=== PATIENT | male | born 1990 | race Caucasian/White ===

== ENCOUNTER 2018-02-04 14:07 | Emergency (ER) | payer MEDICAID ==
[2018-02-04] MEDS ORDERED: Diphtheria,Pertussis(Acell),Tetanus Vaccine 0.5 ML SDV IM ONE (14:35)
--- NOTE | 2018-02-06 10:44 | ER ---
DATE SEEN: 02/04/2018 TIME SEEN: The patient was seen at 1423 hours. HISTORY OF PRESENT ILLNESS: The patient works at the [employer]. Two days ago, he cut his right lateral mid phalanges, dominant hand accidentally with his knife. He has no loss of sensation. He has free range of motion of the finger. He was unable to get to the hospital for laceration repair. Consequently, now it is 2 days. PHYSICAL EXAMINATION: HEENT: Negative. LUNGS: Negative. CARDIORESPIRATORY: Negative. ABDOMEN: Negative. EXTREMITIES: Right lateral (ulnar) surface and mid phalanges 1 cm laceration. Wound is clean. No erythema. No linear angiitis. No swelling. There is mild tenderness. ASSESSMENT: The patient is beyond the therapeutic window for suture placement. I would not use Steri-Strips or Dermabond. PLAN: Let it heal by secondary intention. If there is mild infection, he should wash and clean it as needed. Wash and clean with soap, has already been cleansed by the nurse. Follow up with doctor as needed. ASSESSMENT: Laceration beyond the therapeutic window for suture repair. Reassure. No evidence for tendon involvement or neurological or sensory changes. /[id number] JOSE/MODL
== END 2018-02-04 14:57 | disposition home or self-care (01) ==
LOC: FB.ED 14:07
DX: S61.219A Laceration without foreign body of unspecified finger without damage to nail, initial encounter (principal); W26.0XXA Contact with knife, initial encounter
CPT/HCPCS: 90471; 90472; 90715; 99281; 99283

== ENCOUNTER 2018-05-24 14:37 | Emergency (ER) | payer SELFPAY ==
[2018-05-24] MEDS ORDERED: Acetaminophen/HYDROcodone 325-5 MG Tab PO ONE (14:50)
--- NOTE | 2018-05-24 15:05 | EDM.PDOC ---
ED HPI GENERAL MEDICAL PROBLEM - General Chief Complaint: Upper Extremity Injury/Pain Stated Complaint: RT HAND Time Seen by Provider: 05/24/18 14:37 Source of Information: Reports: Patient, Family History Limitations: Reports: No Limitations - History of Present Illness INITIAL COMMENTS - FREE TEXT/NARRATIVE: 27 years old -muscular-w m, came to the ed due to pain at his right lat hand after he slammed his right hand between a sofa and a door while moving a sofa at his home. Pt had a recent fracture at his right 5th metacarpal bone, which was healing and he was cleared to go back to work today. He was sent home from work today because he need to use 2 hand at work and light duty is not on option at his work. Pt is able to move his fingers with some discomfort. 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 Pt dose not have any other medical issues at this time, no N/V/D and dizziness either. BP 131/81 pulse 89 Pulse ox 99% on RA, Temp 36.8 RR 19 Onset Date: 05/24/18 Onset Time: 10:00 Duration: Hour(s): Location: Reports: Upper Extremity, Right Quality: Reports: Ache, Burning, Dull Severity: Moderate Improves with: Reports: Rest Worsens with: Reports: Movement Context: Reports: Trauma Associated Symptoms: Reports: No Other Symptoms Treatments EARLY HEAD START DIRECTOR: Reports: Aspirin Right Hand Pain Score (Numeric/FACES): 9 - Related Data Allergies Allergy/AdvReac Type Severity Reaction Status Date / Time No Known Allergies Allergy Verified 05/24/18 14:47 Home Meds: Home Meds Acetaminophen/HYDROcodone [Warren 325-5 MG] 1 - 2 tab PO Q6H PRN #16 tab [Rx] Past Medical History - Past Health History Medical/Surgical History: Denies Medical/Surgical History Musculoskeletal History: Reports: Fracture Psychiatric History: Reports: ADHD, Bipolar, Schizophrenia Social & Family History - Family History Family Medical History: Noncontributory - Caffeine Use Caffeine Use: Reports: Coffee Review of Systems - Review of Systems Review Of Systems: See Below Constitutional: Reports: No Symptoms Eyes: Reports: No Symptoms Ears: Reports: No Symptoms Nose: Reports: No Symptoms Mouth/Throat: Reports: No Symptoms Respiratory: Reports: No Symptoms Cardiovascular: Reports: No Symptoms GI/Abdominal: Reports: No Symptoms Genitourinary: Reports: No Symptoms Musculoskeletal: Reports: Hand Pain Skin: Reports: No Symptoms Neurological: Reports: No Symptoms Psychiatric: Reports: No Symptoms ED EXAM, GENERAL - Physical Exam Exam: See Below Exam Limited By: No Limitations General Appearance: Alert, WD/WN, Mild Distress Eye Exam: Bilateral Eye: Normal Inspection Ears: Normal External Exam Ear Exam: Bilateral Ear: Auricle Normal Nose: Normal Inspection, Normal Mucosa, No Blood Throat/Mouth: Normal Inspection, Normal Lips, Normal Gums, Normal Voice, No Airway Compromise Head: Atraumatic, Normocephalic Neck: Normal Inspection, Supple, Non-Tender Respiratory/Chest: No Respiratory Distress, Lungs Clear, Normal Breath Sounds, No Accessory Muscle Use, Chest Non-Tender Cardiovascular: Normal Peripheral Pulses, Regular Rate, Rhythm, No Edema Peripheral Pulses: 2+: Brachial (L) GI/Abdominal: Normal Bowel Sounds, Soft, Non-Tender, No Organomegaly, No Distention, No Abnormal Bruit, No Mass, Pelvis Stable (Male) Exam: Deferred Rectal (Males) Exam: Deferred Back Exam: Normal Inspection, Full Range of Motion Extremities: Normal Inspection, Normal Range of Motion, Other (right hand pain/ swelling, no open wound rogh lat hand.) Neurological: Alert, Oriented, CN II-XII Intact, Normal Cognition, Normal Gait, Normal Reflexes, No Motor/Sensory Deficits Psychiatric: Normal Affect, Normal Mood Skin Exam: Warm, Dry, Intact, Normal Color, No Rash Lymphatic: No Adenopathy Course - Vital Signs Text/Narrative:: 27 years old -muscular-w m, came to the ed due to pain at his right lat hand after he slammed his right hand between a sofa and a door while moving a sofa at his home. Pt had a recent fracture at his right 5th metacarpal bone, which was healing and he was cleared to go back to work today. He was sent home from work today because he need to use 2 hand at work and light duty is not on option at his work. Pt is able to move his fingers with some discomfort. 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 Pt dose not have any other medical issues at this time, no N/V/D and dizziness either. BP 131/81 pulse 89 Pulse ox 99% on RA, Temp 36.8 RR 19 PE: WNWD WM with right hand pain Imaging: Spiral Fx 5th MC bone right hand, non displaced on top of an old simple Fx same location Impression: Spiral Fx 5th MC bone right hand, non displaced on top of an old simple Fx same location Tx: Ice, elevation. Warren, valco splint (pt had his own splint) Reexam: Improved 3.[address] Potts, Ortho: Rest, Ice and elevation, can see pt this Tuesday Plan: D/C with instructions Last Recorded V/S: Last Vital Signs Temp 36.4 C 05/24/18 14:48 Pulse 89 05/24/18 14:48 Resp 16 05/24/18 14:48 BP 131/81 05/24/18 14:48 Pulse Ox 99 05/24/18 14:48 - Orders/Labs/Meds Orders: Active Orders 24 hr Category Date Time Status Cooling Warming Measures [RC] ASDIRECTED Care 05/24/18 14:51 Active Hand Comp Min 3V Rt [CR] Stat Exams 05/24/18 14:50 Taken Ice Bag [Ice Therapy] [OM.PC] Routine Oth 05/24/18 14:51 Ordered Meds: Medications Discontinued Medications Generic Name Dose Route Start Last Admin Trade Name Freq PRN Reason Stop Dose Admin Hydrocodone Bitart/Acetaminophen 1 tab 05/24/18 14:50 Warren 325-5 Mg PO 05/24/18 14:51 ONETIME ONE Departure - Departure Time of Disposition: 15:35 Disposition: Home, Self-Care 01 Condition: Good Clinical Impression: Metacarpal bone fracture Qualifiers: Encounter type: initial encounter Metacarpal bone: fifth Fracture type: closed Metacarpal location: shaft Fracture alignment: nondisplaced Laterality: right Qualified Code(s): S62.356A - Nondisplaced fracture of shaft of fifth metacarpal bone, right hand, initial encounter for closed fracture - Discharge Information *PRESCRIPTION DRUG MONITORING PROGRAM REVIEWED*: Yes *COPY OF PRESCRIPTION DRUG MONITORING REPORT IN PATIENT JESUS: Yes Prescriptions: Acetaminophen/HYDROcodone [Warren 325-5 MG] 1 - 2 tab PO Q6H PRN #16 tab PRN Reason: for severe pain only. Referrals: Gabe Potts DO [Primary Care Provider] - Forms: ED Department Discharge, ED Return to Work/School Form Additional Instructions: Rest, Ice elevation, Motrin, Warren for severe pain., Please follow up with Dr. Potts this Tuesday, please come back if your symptoms get worse acutely. - My Orders Last 24 Hours: My Active Orders 05/24/18 14:50 Hand Comp Min 3V Rt [CR] Stat 05/24/18 14:51 Cooling Warming Measures [RC] ASDIRECTED Ice Bag [Ice Therapy] [OM.PC] Routine - Assessment/Plan Last 24 Hours: My Active Orders 05/24/18 14:50 Hand Comp Min 3V Rt [CR] Stat 05/24/18 14:51 Cooling Warming Measures [RC] ASDIRECTED Ice Bag [Ice Therapy] [OM.PC] Routine
--- NOTE | 2018-05-25 11:04 | CR ---
INDICATION: Smashed hand between door frame and couch, moving couch. RIGHT HAND: Three views of the right hand were obtained 05/24/2018 and compared with 04/07/2018, revealing a refracture through the mid shaft of the 5th metacarpal, now a spiral fracture, as opposed to a simple fracture on the previous examination. It remains in good position and alignment, however, with no other bone or joint abnormality identified. Report was called to Dr. Phelps at 1532 hours on 05/24/2018. JEIMY
== END 2018-05-24 15:55 | disposition home or self-care (01) ==
LOC: FB.ED 14:37
DX: S62.356A Nondisplaced fracture of shaft of fifth metacarpal bone, right hand, initial encounter for closed fracture (principal); W23.0XXA Caught, crushed, jammed, or pinched between moving objects, initial encounter
CPT/HCPCS: 73130-RT; 99283

== ENCOUNTER 2019-05-06 10:47 | Emergency (ER) | payer BC ==
--- NOTE | 2019-05-06 11:30 | EDM.PDOC ---
ED HPI GENERAL MEDICAL PROBLEM - General Chief Complaint: Neuro Symptoms/Deficits Stated Complaint: LIGHT HEADED AND DIZZY Time Seen by Provider: 05/06/19 11:15 Source of Information: Reports: Patient History Limitations: Reports: No Limitations - History of Present Illness INITIAL COMMENTS - FREE TEXT/NARRATIVE: 28-year-old male who reports for the past 1-1/2 months he has had feelings of dizziness, shortness of breath, hot and cold flashes and episodes of near syncope. He has had coughing episodes as well. 2-1/2 weeks ago, he was seen at the [facility] and reports he had an EKG, blood tests and a chest x-ray performed and was told that everything looked okay but he had a bronchitis and they treated with a Z-G[place]. He states that he improved marginally with decreased cough but he still has the dizziness and hot and cold flashes. They also told him at the time that he had elevated blood pressure. He has had no nausea or vomiting. He has been eating and drinking normally. He has had no syncopal episodes. He does feel short of breath. He denies any chest pain or abdominal pain. He does have back pain but this is chronic and he rates the pain as a 6/ 10. This is a sore and aching pain that is worse with activity and better with rest. No localized area of weakness. There are no other associated signs or symptoms. There are no other modifying factors. Onset: Other (1-1/2 months ago) Duration: Constant (Constant and not improving according to the patient) Location: Reports: Back (He does have chronic back pain but this is not his issue today.), Other (Generalized malaise) Quality: Reports: Ache (In his back) Severity: Moderate Improves with: Reports: Rest Worsens with: Reports: Movement (Activity) Context: Reports: Other (As above) Associated Symptoms: Reports: Malaise, Shortness of Breath, Weakness, Other ( Dizziness and near syncope. Hot and cold flashes.) Treatments GLASS CYLINDER FLANGER: Reports: Other (see below) (Nothing) - Related Data Allergies Allergy/AdvReac Type Severity Reaction Status Date / Time No Known Allergies Allergy Verified 05/06/19 10:59 Home Meds: Home Meds NK [No Known Home Meds] 05/06/19 [History] Past Medical History Respiratory History: Reports: Bronchitis, Recurrent Musculoskeletal History: Reports: Back Pain, Chronic, Fracture, Neck Pain, Chronic Other Musculoskeletal History: hx fx L ankle, R hand fx Neurological History: Reports: Migraines, Vertigo Psychiatric History: Reports: ADD, ADHD, Anxiety, Bipolar, Panic Attack, Psych Hospitalization(s), Schizophrenia, Suicide Attempt - Infectious Disease History Infectious Disease History: Reports: Chicken Pox - Past Surgical History Other Surgical History Comment: No previous surgeries. Social & Family History - Tobacco Use Smoking Status *Q: Current Every Day Smoker Years of Tobacco use: 20 Packs/Tins Daily: 2 - Caffeine Use Caffeine Use: Reports: Coffee, Energy Drinks, Soda Other Caffeine Use: reports drinking 1 pot of coffee per day. - Alcohol Use Alcohol Use History: Yes Alcohol Use Frequency: Monthly - Recreational Drug Use Recreational Drug Use: Yes Recreational Drug Type: Reports: Marijuana/Hashish Recreational Drug Use Frequency: Daily - Living Situation & Occupation Occupation: Employed (He works at the [employer] in housekeeping) Social History Comment: He is here with his significant other. ED ROS GENERAL - Review of Systems Review Of Systems: See Below Constitutional: Reports: Malaise, Other (Hot and cold flashes) HEENT: Reports: Vertigo (Dizziness but this is also chronic) Respiratory: Reports: Shortness of Breath (Feels short of breath) Cardiovascular: Reports: Lightheadedness GI/Abdominal: Reports: No Symptoms : Reports: No Symptoms Musculoskeletal: Reports: Neck Pain (Chronic), Back Pain (Chronic) Skin: Reports: No Symptoms Neurological: Reports: Dizziness, Other (Near syncope at times) Psychiatric: Reports: Anxiety Hematologic/Lymphatic: Reports: No Symptoms ED EXAM, GENERAL - Physical Exam Exam: See Below Free Text/Narrative:: There were no orthostatic changes in the patient's blood pressure or pulse. Exam Limited By: No Limitations General Appearance: Alert, WD/WN, No Apparent Distress Eye Exam: Bilateral Eye: EOMI, Normal Inspection, PERRL Ears: Normal External Exam, Hearing Grossly Normal Ear Exam: Bilateral Ear: Auricle Normal Nose: Normal Inspection, Normal Mucosa, No Blood Throat/Mouth: Normal Oropharynx, Normal Voice, No Airway Compromise Head: Atraumatic, Normocephalic Neck: Normal Inspection, Supple, Non-Tender, Full Range of Motion Respiratory/Chest: No Respiratory Distress, Lungs Clear, Normal Breath Sounds, No Accessory Muscle Use, Chest Non-Tender Cardiovascular: Normal Peripheral Pulses, Regular Rate, Rhythm, No JVD, No Murmur Peripheral Pulses: 2+: Radial (L), Radial (R), Dorsalis Pedis (L), Dorsalis Pedis (R) GI/Abdominal: Normal Bowel Sounds, Soft, Non-Tender, No Organomegaly, No Mass Back Exam: Normal Inspection Extremities: Normal Inspection, Normal Range of Motion, Non-Tender, No Pedal Edema, Normal Capillary Refill Neurological: Alert, Oriented, CN II-XII Intact, Normal Cognition, No Motor/ Sensory Deficits Psychiatric: Anxious Skin Exam: Warm, Dry, Intact, Normal Color, No Rash EKG INTERPRETATION EKG Date: 05/06/19 Time: 11:48 Rhythm: NSR Rate (Beats/Min): 66 [place]: LAD-Left [place] Deviation (Slight left axis) P-Wave: Present QRS: Other (Borderline IVCD) ST-T: Normal QT: Normal Comparison: NA - No Prior EKG Course - Vital Signs Last Recorded V/S: Last Vital Signs Temp 36.6 C 05/06/19 10:52 Pulse 82 05/06/19 10:52 Resp 18 05/06/19 10:52 BP 142/83 H 05/06/19 10:52 Pulse Ox 100 05/06/19 10:52 Orthostatic Blood Pressure [ 133/84 Standing] Orthostatic Blood Pressure [ 131/76 Sitting] Orthostatic Blood Pressure [ 121/76 Supine] - Orders/Labs/Meds Orders: Active Orders 24 hr Category Date Time Status EKG Documentation Completion [RC] ASDIRECTED Care 05/06/19 11:32 Active EKG 12 Lead [EK] Routine Ther 05/06/19 11:31 Ordered Labs: Laboratory Tests 05/06/19 05/06/19 05/06/19 Range/Units 11:44 11:44 11:57 WBC 19.7 H (4.5-12.0) X10-3/uL RBC 5.51 (4.30-5.75) x10(6)uL Hgb 16.6 (13.5-17.8) g/dL Hct 48.2 (30.0-51.3) % MCV 87.5 (80-96) fL MCH 30.1 (27.7-33.6) pg MCHC 34.4 (32.2-35.4) g/dL RDW 12.5 (11.5-15.5) % Plt Count 348 (125-369) X10(3)uL MPV 8.0 (7.4-10.4) fL Neut % (Auto) 77.3 (46-82) % Lymph % (Auto) 11.5 L (13-37) % [place] % (Auto) 5.6 (4-12) % Eos % (Auto) 3 (1.0-5.0) % Baso % (Auto) 3 H (0-2) % Neut # (Auto) 15.2 H (1.6-8.3) # Lymph # (Auto) 2.3 (0.6-5.0) # [place] # (Auto) 1.1 (0.0-1.3) # Eos # (Auto) 0.6 (0.0-0.8) # Baso # (Auto) 0.5 H (0.0-0.2) # Sodium (135-145) mmol/L Potassium (3.5-5.3) mmol/L Chloride (100-110) mmol/L Carbon Dioxide (21-32) mmol/L BUN (7-18) mg/dL Creatinine (0.70-1.30) mg/dL Est Cr Clr Drug Dosing mL/min Estimated GFR (MDRD) (>60) BUN/Creatinine Ratio (9-20) Glucose (80-116) mg/dL Calcium (8.6-10.2) mg/dL Magnesium (1.8-2.5) mg/dL Total Bilirubin (0.1-1.3) mg/dL AST (5-25) IU/L ALT (12-36) U/L Alkaline Phosphatase (56-112) IU/L C-Reactive Protein (0.5-0.9) mg/dL Total Protein (6.0-8.0) g/dL Albumin (3.5-5.2) g/dL Globulin g/dL Albumin/Globulin Ratio TSH, Ultra Sensitive (0.36-3.74) IU/mL Urine Color Yellow (YELLOW) Urine Appearance Clear (CLEAR) Urine pH 8.0 H (5.0-6.5) Ur Specific [place] 1.015 (1.010-1.025) Urine Protein Negative (NEGATIVE) mg/dL Urine Glucose (UA) Normal (NORMAL) mg/dL Urine Ketones Negative (NEGATIVE) mg/dL Urine Occult Blood Negative (NEGATIVE) Urine Nitrite Negative (NEGATIVE) Urine Bilirubin Negative (NEGATIVE) Urine Urobilinogen Normal (NEGATIVE) mg/dL Ur Leukocyte Esterase Negative (NEGATIVE) Urine WBC 0-5 (0-5) Ur Squamous Epith Cells Rare (NS,R,O) Urine Bacteria Not seen (NS) Urine Opiates Screen Negative (NEGATIVE) Ur Oxycodone Screen Negative (NEGATIVE) Ur Propoxyphene Screen Negative (NEGATIVE) Ur Barbituates Screen Negative (NEGATIVE) Ur Tricyclics Screen Negative (NEGATIVE) Ur Phencyclidine Scrn Negative (NEGATIVE) Ur Amphetamine Screen Negative (NEGATIVE) Urine MDMA Screen Negative (NEGATIVE) U Benzodiazepines Scrn Negative (NEGATIVE) U Cocaine Metab Screen Negative (NEGATIVE) U Marijuana (THC) Screen Positive H (NEGATIVE) 05/06/19 05/06/19 Range/Units 11:57 11:57 WBC (4.5-12.0) X10-3/uL RBC (4.30-5.75) x10(6)uL Hgb (13.5-17.8) g/dL Hct (30.0-51.3) % MCV (80-96) fL MCH (27.7-33.6) pg MCHC (32.2-35.4) g/dL RDW (11.5-15.5) % Plt Count (125-369) X10(3)uL MPV (7.4-10.4) fL Neut % (Auto) (46-82) % Lymph % (Auto) (13-37) % [place] % (Auto) (4-12) % Eos % (Auto) (1.0-5.0) % Baso % (Auto) (0-2) % Neut # (Auto) (1.6-8.3) # Lymph # (Auto) (0.6-5.0) # [place] # (Auto) (0.0-1.3) # Eos # (Auto) (0.0-0.8) # Baso # (Auto) (0.0-0.2) # Sodium 138 (135-145) mmol/L Potassium 3.9 (3.5-5.3) mmol/L Chloride 104 (100-110) mmol/L Carbon Dioxide 26 (21-32) mmol/L BUN 13 (7-18) mg/dL Creatinine 1.0 (0.70-1.30) mg/dL Est Cr Clr Drug Dosing 124.29 mL/min Estimated GFR (MDRD) > 60 (>60) BUN/Creatinine Ratio 13.0 (9-20) Glucose 97 (80-116) mg/dL Calcium 9.2 (8.6-10.2) mg/dL Magnesium 2.1 (1.8-2.5) mg/dL Total Bilirubin 0.3 (0.1-1.3) mg/dL AST 12 (5-25) IU/L ALT 30 (12-36) U/L Alkaline Phosphatase 63 (56-112) IU/L C-Reactive Protein 0.5 (0.5-0.9) mg/dL Total Protein 7.8 (6.0-8.0) g/dL Albumin 3.8 (3.5-5.2) g/dL Globulin 4.0 g/dL Albumin/Globulin Ratio 1.0 TSH, Ultra Sensitive 3.43 (0.36-3.74) IU/mL Urine Color (YELLOW) Urine Appearance (CLEAR) Urine pH (5.0-6.5) Ur Specific [place] (1.010-1.025) Urine Protein (NEGATIVE) mg/dL Urine Glucose (UA) (NORMAL) mg/dL Urine Ketones (NEGATIVE) mg/dL Urine Occult Blood (NEGATIVE) Urine Nitrite (NEGATIVE) Urine Bilirubin (NEGATIVE) Urine Urobilinogen (NEGATIVE) mg/dL Ur Leukocyte Esterase (NEGATIVE) Urine WBC (0-5) Ur Squamous Epith Cells (NS,R,O) Urine Bacteria (NS) Urine Opiates Screen (NEGATIVE) Ur Oxycodone Screen (NEGATIVE) Ur Propoxyphene Screen (NEGATIVE) Ur Barbituates Screen (NEGATIVE) Ur Tricyclics Screen (NEGATIVE) Ur Phencyclidine Scrn (NEGATIVE) Ur Amphetamine Screen (NEGATIVE) Urine MDMA Screen (NEGATIVE) U Benzodiazepines Scrn (NEGATIVE) U Cocaine Metab Screen (NEGATIVE) U Marijuana (THC) Screen (NEGATIVE) - Re-Assessments/Exams Free Text/Narrative Re-Assessment/Exam: 05/06/19 12:54: Patient's white blood cell count was 19.7. The rest of his blood tests were all reassuringly normal. I am unsure the cause of his elevated white blood cell count but it is pointing toward nothing serious at this time. His urine test was positive for marijuana and he did admit that he smokes marijuana to "self medicate". He even asked for the possibility of medical marijuana and I referred him to his primary doctor in regard to this. He has remained vitally stable in the emergency department. He was urged to drink plenty of fluids, get plenty of rest and to reduce the stress in his life. He was also urged to follow-up with his primary doctor this next week. He is stable for discharge. Departure - Departure Time of Disposition: 13:00 Disposition: Home, Self-Care 01 Condition: Good Clinical Impression: Dizziness, Malaise, Anxiety - Discharge Information Referrals: Ronda Cooper QUALITY AUDITOR [Primary Care Provider] - Forms: ED Department Discharge Additional Instructions: You do still have an elevated white blood cell count but I am unsure of the cause or the significance of this. The rest of your blood tests were reassuringly normal. Your vital signs were normal. You should drink plenty of fluids. You should rest. No work today. Follow-up with your primary doctor this next week. Back to the emergency department for unrelenting vomiting, worse breathing, high fever, pass out spells or any other concerning sign or symptom. - My Orders Last 24 Hours: My Active Orders 05/06/19 11:31 EKG 12 Lead [EK] Routine 05/06/19 11:32 EKG Documentation Completion [RC] ASDIRECTED - Assessment/Plan Last 24 Hours: My Active Orders 05/06/19 11:31 EKG 12 Lead [EK] Routine 05/06/19 11:32 EKG Documentation Completion [RC] ASDIRECTED
== END 2019-05-06 13:04 | disposition home or self-care (01) ==
LOC: FB.ED 10:47
DX: R42 Dizziness and giddiness (principal); R53.81 Other malaise; F41.9 Anxiety disorder, unspecified; F17.210 Nicotine dependence, cigarettes, uncomplicated
CPT/HCPCS: 36415; 80053; 80305-QW; 81001; 83735; 84443; 85025; 86140; 93005; 99285-25

== ENCOUNTER 2020-02-05 18:48 | Emergency (ER) | payer SELFPAY ==
[2020-02-05] MEDS: Ketorolac 60 MG/2 ML SDV IM ONE (19:22)
--- NOTE | 2020-02-05 19:50 | EDM.PDOC ---
ED HPI GENERAL MEDICAL PROBLEM - General Chief Complaint: Lower Extremity Injury/Pain Stated Complaint: R ANKLE INJURY Time Seen by Provider: 02/05/20 18:50 - History of Present Illness INITIAL COMMENTS - FREE TEXT/NARRATIVE: Patient presented to the ED because of Rt akle pain and swelling. He was jumping on the trampoline and her a pop on his rt ankle/foot. The pain is sharp 7/10 and is worse with ambulation. Right Ankle Pain Score (Numeric/FACES): 7 - Related Data Allergies Allergy/AdvReac Type Severity Reaction Status Date / Time No Known Allergies Allergy Verified 05/06/19 10:59 Home Meds: Home Meds NK [No Known Home Meds] 05/06/19 [History] Past Medical History - Past Health History Medical/Surgical History: Denies Medical/Surgical History Respiratory History: Reports: Bronchitis, Recurrent Musculoskeletal History: Reports: Back Pain, Chronic, Fracture, Neck Pain, Chronic Other Musculoskeletal History: hx fx L ankle, R hand fx Neurological History: Reports: Migraines, Vertigo Psychiatric History: Reports: ADD, ADHD, Anxiety, Bipolar, Panic Attack, Psych Hospitalization(s), Schizophrenia, Suicide Attempt - Infectious Disease History Infectious Disease History: Reports: Chicken Pox - Past Surgical History Other Surgical History Comment: No previous surgeries. Social & Family History - Family History Family Medical History: Noncontributory - Tobacco Use Smoking Status *Q: Current Every Day Smoker Years of Tobacco use: 20 Packs/Tins Daily: 1 - Caffeine Use Caffeine Use: Reports: Coffee, Energy Drinks, Soda Other Caffeine Use: reports drinking 1 pot of coffee per day. - Living Situation & Occupation Occupation: Employed (He works at [employer] in housekeeping) Review of Systems - Review of Systems Review Of Systems: See Below Constitutional: Reports: No Symptoms Ears: Reports: No Symptoms Nose: Reports: No Symptoms Mouth/Throat: Reports: No Symptoms Respiratory: Reports: No Symptoms Cardiovascular: Reports: No Symptoms GI/Abdominal: Reports: No Symptoms Genitourinary: Reports: No Symptoms Musculoskeletal: Reports: Joint Pain, Joint Swelling ED EXAM, GENERAL - Physical Exam Exam: See Below Exam Limited By: No Limitations General Appearance: Alert, No Apparent Distress Eye Exam: Bilateral Eye: PERRL Ears: Normal External Exam, Normal Canal Nose: Normal Inspection, Normal Mucosa, No Blood Throat/Mouth: Normal Inspection, Normal Lips, Normal Teeth Neck: Normal Inspection, Supple, Non-Tender Respiratory/Chest: No Respiratory Distress, Lungs Clear, Normal Breath Sounds Cardiovascular: Normal Peripheral Pulses, Regular Rate, Rhythm, No Edema GI/Abdominal: Normal Bowel Sounds, Soft, Non-Tender Back Exam: Normal Inspection, Full Range of Motion, CVA Tenderness (R) Extremities: Joint Swelling, Leg Pain, Other (tenderness on the medial and lateral aspect of the right ankle) Course - Vital Signs Text/Narrative:: toradol 60 mg IM x1 air cast applied by ED RN Last Recorded V/S: Last Vital Signs Temp 36.4 C 02/05/20 18:48 Pulse 85 02/05/20 18:48 Resp 17 02/05/20 18:48 BP 143/99 H 02/05/20 18:48 Pulse Ox 100 02/05/20 18:48 - Orders/Labs/Meds Orders: Active Orders 24 hr Category Date Time Status Ankle Min 3V Rt [CR] Stat Exams 02/05/20 19:08 Taken Foot Comp Min 3V Rt [CR] Stat Exams 02/05/20 19:08 Taken Meds: Medications Discontinued Medications Generic Name Dose Route Start Last Admin Trade Name Freq PRN Reason Stop Dose Admin Ketorolac Tromethamine 60 mg 02/05/20 19:09 02/05/20 19:22 Toradol IM 02/05/20 19:10 60 mg ONETIME ONE Administration Departure - Departure Time of Disposition: 19:50 Disposition: Home, Self-Care 01 Condition: Good Clinical Impression: Right ankle injury - Discharge Information Instructions: Ankle Sprain, [id number] Referrals: PCP,None [Primary Care Provider] - Forms: ED Department Discharge Additional Instructions: please read discharge instructions on ankle injury and sprain apply ice elevate take ibuprofen 800 mg 3 times daily for 7 days use your crutches and keep the air cast on until the pain is gone we will call you if there is any changes on the xray reading Sepsis Event Note - Evaluation Sepsis Screening Result: No Definite Risk - Focused Exam Date Exam was Performed: 02/06/20 Time Exam was Performed: 10:40 - My Orders Last 24 Hours: My Active Orders 02/05/20 19:08 Ankle Min 3V Rt [CR] Stat Foot Comp Min 3V Rt [CR] Stat - Assessment/Plan Last 24 Hours: My Active Orders 05/19/20 19:08 Ankle Min 3V Rt [CR] Stat Foot Comp Min 3V Rt [CR] Stat
--- NOTE | 2020-02-07 13:21 | CR ---
INDICATION: Fell, twisting ankle, pain top of foot. RIGHT ANKLE: Three views of the right ankle were obtained 02/05/20 - no comparisons. There appears to be some soft tissue swelling overlying the lateral malleolus. A tiny spur is noted at the inferior aspect of the medial malleolus, which could be on the basis of post traumatic osteoarthritis of minimal degree. Otherwise, the ankle mortise appeared intact without evidence of an acute fracture, dislocation or other significant bone or joint abnormality. If occult fracture site is suspected clinically, if symptoms persist, re- examination in 10-14 days may be helpful. MTDD
--- NOTE | 2020-02-07 13:27 | CR ---
INDICATION: Fell twisting ankle, pain top of foot. RIGHT FOOT: Three views of the right foot were obtained 02/05/20 and revealed a small bony density along the lateral plantar aspect of the proximal cuboid bone just below the calcaneal cuboid joint. This could represent a tiny avulsion chip fracture fragment with some rotation of the fracture fragment - approximately 90 degrees. An ununited accessory ossification center would be a consideration with this appearance. This should be correlated clinically. Otherwise, no significant bone or joint abnormality was suggested. IMPRESSION: Cannot exclude a tiny avulsion chip fracture fragment off the proximal plantar aspect of the cuboid bone. Depending upon clinical correlation , re-examination in 10-14 days may be helpful for confirmation. Report was called to Dr. Trevino at 13:01 hours. JEIMY
== END 2020-02-05 19:55 | disposition home or self-care (01) ==
LOC: FB.ED 18:48
DX: S99.911A Unspecified injury of right ankle, initial encounter (principal); F17.210 Nicotine dependence, cigarettes, uncomplicated; X50.1XXA Overexertion from prolonged static or awkward postures, initial encounter; Y93.44 Activity, trampolining
CPT/HCPCS: 73610-RT; 73630-RT; 96372; 99283; J1885

== ENCOUNTER 2022-12-12 18:55 | Emergency (ER) | payer SELFPAY | END 2022-12-12 19:54 | disposition home or self-care (01) | LOC: FB.ED 18:55 | DX: R03.0 Elevated blood-pressure reading, without diagnosis of hypertension (principal) | CPT/HCPCS: 99283 ==

== ENCOUNTER 2023-11-06 09:56 | Emergency (ER) | payer SELFPAY ==
[2023-11-06] MEDS: Ketorolac 30 MG/ML SDV IM ONE (10:35)
[2023-11-06] MEDS: Cyclobenzaprine 10 MG Tab PO ONE (10:36)
[2023-11-06] MEDS: traMADol 50 MG Tab PO ONE (10:36)
== END 2023-11-06 12:30 | disposition home or self-care (01) ==
LOC: FB.ED 09:56
DX: S39.012A Strain of muscle, fascia and tendon of lower back, initial encounter (principal); M51.86 Other intervertebral disc disorders, lumbar region; F17.210 Nicotine dependence, cigarettes, uncomplicated; W18.2XXA Fall in (into) shower or empty bathtub, initial encounter
CPT/HCPCS: 72100; 96372; 99283; A9270; J1885

== ENCOUNTER 2025-04-10 15:55 | Emergency (ER) | payer BC ==
[2025-04-10] MEDS ORDERED: Sodium Chloride 0.9% 10 ML Syringe FLUSH PRN (16:16)
[2025-04-10 16:35] LABS: BASOPHILS ABSOLUTE AUTO 0.1 x10-3/uL (0.0-0.3); BASOPHILS PERCENT AUTO 0.9 % (0.3-3.8); EOSINOPHILS ABSOLUTE AUTO 0.4 x10-3/uL (0.0-0.6); EOSINOPHILS PERCENT AUTO 4.0 % (0.1-6.8); LYMPHOCYTES ABSOLUTE AUTO 2.8 x10-3/uL (0.5-4.5); LYMPHOCYTES PERCENT AUTO 26.0 % (15.8-45.3); MEAN PLATELET VOLUME 7.6 fL (6.7-11.0); MONOCYTES ABSOLUTE AUTO 0.7 x10-3/uL (0.0-1.2); MONOCYTES PERCENT AUTO 6.3 % (5.5-15.2); NEUTROPHILS ABSOLUTE AUTO 6.7 x10-3/uL (1.7-6.9); NEUTROPHILS PERCENT AUTO 62.8 % (40.3-71.8); PLATELET COUNT,PLT 381 x10(3)uL (117-477); RED BLOOD CELL COUNT 5.43 x10(6)uL (3.90-5.90); RED CELL DISTRIBUTION WIDTH 14.3 % (12.4-15.0); WHITE BLOOD CELL COUNT,WBC 10.6 x10-3/uL (3.2-10.1)
[2025-04-10 16:39] LABS: BLOOD UREA NITROGEN,BUN 16 mg/dL (7-18); CARBON DIOXIDE,CO2 27 mmol/L (21-32); CHLORIDE,CL 101 mmol/L (100-110); CREATININE 1.2 mg/dL (0.70-1.30); EST CRCL DRUG DOSING (CG) 98.03 mL/min; ESTIMATED GFR 81 mL/min (>60); GLUCOSE RANDOM 87 mg/dL (80-116); POTASSIUM,K 3.4 mmol/L (3.5-5.3); SODIUM,NA 139 mmol/L (135-145)
[2025-04-10 16:44] LABS: INR 0.91 (1.00-1.24); PTT,PARTIAL THROMBOPLSTIN TIME 27.6 SECONDS (24.4-33.2)
[2025-04-10 16:45] LABS: A/G RATIO 1.2; ALANINE AMINOTRANSFERASE,ALT 116 U/L (12-36); ASPARTATE AMNIOTRANSFERASE,AST 83 IU/L (5-25); BILIRUBIN TOTAL 0.5 mg/dL (0.1-1.3); PROTEIN TOTAL,TP 8.1 g/dL (6.0-8.0)
[2025-04-10 16:52] LABS: PRO B-TYPE NATRIUR PEPT,BNPPRO 6.0 pg/mL (<=125)
[2025-04-10] MEDS: Potassium Chloride 20 MEQ Tab.ER PO ONE (17:25)
== END 2025-04-10 17:41 | disposition home or self-care (01) ==
LOC: FB.ED 15:55
DX: I10 Essential (primary) hypertension (principal); E87.6 Hypokalemia; Z79.899 Other long term (current) drug therapy
CPT/HCPCS: 36415; 70450; 80053; 83880; 84484; 85025; 85610; 85730; 99285; A9270

== ENCOUNTER 2025-06-10 02:22 | Emergency (ER) | payer OTHER, BC | END 2025-06-10 02:47 | LOC: SUPCPDRO 02:22 → FB.ED 02:22 | DX: S00.03XA Contusion of scalp, initial encounter (principal); I10 Essential (primary) hypertension; E11.9 Type 2 diabetes mellitus without complications; F17.200 Nicotine dependence, unspecified, uncomplicated; W18.02XA Striking against glass with subsequent fall, initial encounter | CPT/HCPCS: 99283 ==